=== PATIENT | male | born 1975 | race Caucasian/White ===

== ENCOUNTER 2018-01-06 03:00 | Inpatient (IN) | payer MEDICAID ==
[~2018-01-06] VITALS: Ht 165.1 cm; Wt 80.7 kg
[2018-01-06 03:00] VITALS: BP 120/73
[2018-01-06 06:13] LABS: APPEARANCE,URINE CLEAR (CLEAR); BILIRUBIN,URINE NEGATIVE (NEGATIVE); BLOOD, URINE NEGATIVE (NEGATIVE); COLOR,URINE YELLOW (YELLOW); LEUKOCYTE ESTERASE ,URINE NEGATIVE (NEGATIVE); NITRITE, URINE NEGATIVE (NEGATIVE); UGLUCOSE NEGATIVE (NEGATIVE)
[2018-01-06 06:39] LABS: BASOPHILS % (AUTO) 0.3 % (0.0-2.0); EOSINOPHILS % (AUTO) 0.2 % (0.0-4.0); HEMATOCRIT 45.3 % (36-52); HEMOGLOBIN 15.4 g/dL (12.0-18.0); LYMPHOCYTES # (AUTO) 1.6 K/uL (2.0-11.5); MEAN CORPUSCULAR HEMOGLOBIN 27 pg (27-31); MEAN CORPUSCULAR HGB CONC 34 g/dL (33-37); MONOCYTES % (AUTO) 7.2 % (1.7-9.3); NEUTROPHILS # (AUTO) 11.6 K/uL (1.8-7.7); NEUTROPHILS % (AUTO) 81.3 % (42.2-75.2); PLATELET COUNT (AUTO) 199 K/uL (140-450); RED BLOOD CELL COUNT(AUTO) 5.66 MIL/uL (4.20-6.10); RED CELL DISTRIBUTION WIDTH 13.4 % (11.6-13.7); WHITE BLOOD COUNT (AUTO) 14.2 K/uL (4.8-10.8)
[2018-01-06] MEDS: DEXT 5% /NACL 0.9% 1,000 ML IV SCH ×3 (06:55→23:35)
[2018-01-06] MEDS ORDERED: ONDANSETRON 4 MG/2 ML VIAL IM/IVP PRN (06:55)
[2018-01-06] MEDS ORDERED: KETOROLAC 30 MG/ML VIAL IVP PRN (06:55)
[2018-01-06] MEDS ORDERED: DOCUSATE SODIUM 100 MG GELCAP PO PRN (06:55)
[2018-01-06] MEDS ORDERED: HYDROcodone/APAP 7.5/325 MG 1 TAB PO PRN (06:55)
[2018-01-06] MEDS ORDERED: ACETAMINOPHEN 325 MG TAB PO PRN (06:55)
[2018-01-06] MEDS ORDERED: MORPHINE SULFATE 4 MG/ML SYR IVP SCH (06:55)
[2018-01-06 07:04] LABS: ANION GAP 9.5 (8-16); CARBON DIOXIDE 28.5 mmol/L (21-32); TOTAL BILIRUBIN 1.2 mg/dL (0.0-1.0)
[2018-01-06 07:05] LABS: ALBUMIN 3.8 g/dL (3.4-5.0)
[2018-01-06 07:30] VITALS: BP 112/66
[2018-01-06] MEDS: MORPHINE SULFATE 4 MG/ML SYR IVP PRN ×2 (09:05→15:00)
[2018-01-06 11:32] LABS: PROTHROMBIN TIME 9.9 secs (10.8-13.4)
[2018-01-06 11:42] LABS: CHOL/HDL RATIO 4.1 (1-4.5)
[2018-01-06] MEDS ORDERED: LACTULOSE 20 GM/30 ML UDC PO SCH (12:30)
[2018-01-06 16:00] VITALS: BP 107/64
[2018-01-06 17:03] LABS: BARBITURATE, URINE NEG. ng/ml (NEG <=200); BENZODIAZEPINE, URINE NEG. ng/mL (NEG <=200); CANNABINOID, URINE NEG. ng/mL (NEG <=50); COCAINE, URINE NEG. ng/mL (NEG <=300); OPIATE, URINE NEG. ng/mL (NEG <=2000); PHENCYCLIDINE SCREEN,URINE NEG. ng/mL (NEG <=25)
[2018-01-06] MEDS ORDERED: ceFAZolin 1,000 MG VIAL ONE (20:20)
[2018-01-06] MEDS ORDERED: PROPOFOL 200 MG/20 ML VIAL IV ONE (20:20)
[2018-01-06] MEDS ORDERED: KETOROLAC 30 MG/ML VIAL ONE (20:20)
[2018-01-06] MEDS ORDERED: ONDANSETRON 4 MG/2 ML VIAL ONE (20:20)
[2018-01-06] MEDS ORDERED: SEVOFLURANE 250 ML BTL INH ONE (20:20)
[2018-01-06] MEDS ORDERED: NEOSTIGMINE 1:1000 10 MG/10 ML VIAL ONE (20:20)
[2018-01-06] MEDS ORDERED: SUCCINYLCHOLINE CHLORIDE 200 MG/10 ML VIAL IVP ONE (20:20)
[2018-01-06] MEDS ORDERED: GLYCOPYRROLATE 0.2 MG/ML VIAL ONE (20:20)
[2018-01-06] MEDS ORDERED: ROCURONIUM 50 MG/5 ML VIAL IV ONE (20:20)
[2018-01-06] MEDS ORDERED: DEXAMETHASONE 4 MG/ML VIAL ONE (20:20)
[2018-01-06] MEDS ORDERED: fentaNYL 0.05 MG/ML VIAL ONE (20:23)
[2018-01-06] MEDS ORDERED: MIDAZOLAM 2 MG/2 ML VIAL ONE (20:23)
[2018-01-06] MEDS ORDERED: MEPERIDINE 50 MG/ML SYR ONE (20:24)
[2018-01-06] MEDS ORDERED: BUPIVACAINE-MPF/EPI 0.25% 30 ML VIAL INJ ONE (20:30)
[2018-01-06] MEDS ORDERED: LACTATED RINGERS 1,000 ML IV SCH (20:59)
[2018-01-06] MEDS ORDERED: ONDANSETRON 4 MG/2 ML VIAL IVP PRN (21:00)
[2018-01-06] MEDS ORDERED: MEPERIDINE 25 MG/ML SYR IVP PRN (21:00)
[2018-01-06] MEDS ORDERED: diphenhydrAMINE 50 MG/ML VIAL IVP PRN (21:00)
[2018-01-06] MEDS ORDERED: HYDROmorphone 1 MG/ML AMP IVP PRN (21:00)
[2018-01-06] MEDS ORDERED: MEPERIDINE 25 MG/ML SYR ONE (21:58)
[2018-01-06 22:10] VITALS: BP 113/64
[2018-01-06 22:45] VITALS: BP 106/60
[2018-01-06 23:45] VITALS: BP 104/61
[2018-01-07 01:00] VITALS: BP 128/61
[2018-01-07] MEDS: DEXT 5% /NACL 0.9% 1,000 ML IV SCH (06:15)
[2018-01-07 06:25] LABS: T4 (THYROXINE) 5.9 ug/dL (4.5-12.0)
[2018-01-07 06:42] LABS: BASOPHILS % (AUTO) 0.3 % (0.0-2.0); HEMATOCRIT 41.6 % (36-52); LYMPHOCYTES # (AUTO) 0.9 K/uL (2.0-11.5); LYMPHOCYTES % (AUTO) 8.5 % (20.5-51.1); MEAN CORPUSCULAR HEMOGLOBIN 27 pg (27-31); MEAN CORPUSCULAR HGB CONC 34 g/dL (33-37); MEAN CORPUSCULAR VOLUME 81.2 fL (80-94); MONOCYTES # (AUTO) 0.4 K/uL (0.8-1.0); MONOCYTES % (AUTO) 4.3 % (1.7-9.3); NEUTROPHILS % (AUTO) 86.9 % (42.2-75.2); PLATELET COUNT (AUTO) 189 K/uL (140-450); RED BLOOD CELL COUNT(AUTO) 5.12 MIL/uL (4.20-6.10); RED CELL DISTRIBUTION WIDTH 12.8 % (11.6-13.7); WHITE BLOOD COUNT (AUTO) 10.4 K/uL (4.8-10.8)
[2018-01-07 06:59] LABS: MAGNESIUM 1.9 mg/dL (1.8-2.4); PHOSPHORUS 3.7 mg/dL (2.5-4.9)
[2018-01-07 07:05] LABS: ANION GAP 9.4 (8-16); CARBON DIOXIDE 27.9 mmol/L (21-32); POTASSIUM 4.3 mmol/L (3.5-5.1)
[2018-01-07 07:55] VITALS: BP 101/50
[2018-01-07] MEDS ORDERED: ACET-2619 PO (08:18)
[2018-01-07] MEDS ORDERED: HYDR-5123 PO (08:18)
[2018-01-07] MEDS ORDERED: CIPR250T3 PO (08:18)
[2018-01-07] MEDS ORDERED: CALCIUM POLYCARBOPHIL 625 MG TAB PO SCH (09:00)
[2018-01-07] MEDS: MORPHINE SULFATE 4 MG/ML SYR IVP PRN (09:18)
[2018-01-07 09:55] LABS: THYROID STIMULATING HORMONE 1.36 uIU/mL (0.34-3.74)
== END 2018-01-07 13:50 | disposition home or self-care (01) | DRG 234 ==
LOC: MED 03:00 → MTU 06:53
PROVIDERS: ADMIT General Practice; ATTEND General Practice
PROC: 0DTJ4ZZ Resection of Appendix, Percutaneous Endoscopic Approach (ICD-10-PCS; principal; 2018-01-06 20:15)
DX: K35.80 Unspecified acute appendicitis (principal); E80.6 Other disorders of bilirubin metabolism; K57.30 Diverticulosis of large intestine without perforation or abscess without bleeding; N20.0 Calculus of kidney
CPT/HCPCS: 36415; 71045; 80048; 80053; 80305; 81003; 81025; 82140; 82150; 82374; 83036; 83605; 83690; 83735; 83880; 84100; 84436; 84443; 84479; 85025; 85610; 85730; 87081; 99285; J0330; J0690; J0696; J1100; J1885; J2175; J2250; J2270; J2405; J2704; J2710; J3010; J3490; J7030; J7042; J7060; Q0092

== ENCOUNTER 2018-03-29 19:05 | Emergency (ER) | payer MEDICAID ==
[~2018-03-29] VITALS: Ht 157.5 cm; Wt 79.4 kg
[~2018-03-29 19:05] MED LIST: ACET-2619 PO; CIPR250T3 PO; HYDR-5123 PO
[2018-03-29 19:31] VITALS: BP 125/63
--- NOTE | 2018-03-29 21:34 | NUR ---
TO ER BED 2
--- NOTE | 2018-03-29 21:37 | NUR ---
PT BIB C/O NAIL PUNCTURE TO L 2ND DIGIT AT 1730 THIS EVENING. BLEEDING CONTROLLED, TETANUS NOT UTD. PAIN 5/10 AT THIS TIME.
[2018-03-29 21:59] VITALS: BP 119/72
--- NOTE | 2018-03-29 21:59 | NUR ---
Patient discharged with v/s stable. Written and verbal after care instructions given and explained. Patient alert, oriented and verbalized understanding of instructions. Ambulatory with steady gait. All questions addressed prior to discharge. ID band removed. Patient advised to follow up with PMD. Rx of KEFLEX 500MG given. Patient educated on indication of medication including possible reaction and side effects. Opportunity to ask questions provided and answered.
== END 2018-03-29 21:59 | disposition home or self-care (01) ==
LOC: MED 19:05
DX: S61.231A Puncture wound without foreign body of left index finger without damage to nail, initial encounter (principal); Z79.891 Long term (current) use of opiate analgesic; Z79.2 Long term (current) use of antibiotics; Z79.1 Long term (current) use of non-steroidal anti-inflammatories (NSAID); W34.09XA Accidental discharge from other specified firearms, initial encounter; Y93.89 Activity, other specified; Y92.89 Other specified places as the place of occurrence of the external cause; Y99.8 Other external cause status
CPT/HCPCS: 73130; 99283